=== PATIENT | male | born 1970 | race Caucasian/White ===

== ENCOUNTER 2018-09-06 12:20 | Observation (INO) | payer OTHER ==
[~2018-09-06] VITALS: Ht 177.8 cm; Wt 112.5 kg
--- OUTSIDE RECORDS SUMMARY | 2018-09-06 12:22 | XMS REPORT | Clinical Summary ---
Author Author [facility] Address Unknown Phone Unavailable Care Team Providers Care System Administration Manager Name Role Phone Jose Wilson MD PCP Allergies Comments Active Allergy Reactions Severity Noted Date No Known Drug Allergies 11/02/2015 Medications End Date Status Medication Sig Dispensed Refills Start Date Active aspirin (ECOTRIN) 81 MG Take 81 mg by 0 enteric coated tablet mouth daily. 10/02/2018 Active atenolol-chlorthalidone Take 1 tablet 30 tablet 5 (TENORETIC 50) 50-25 mg by mouth 8 per tablet daily. Active simvastatin (ZOCOR) 40 MG TAKE 1 TABLET 30 tablet 4 tablet BY MOUTH 8 EVERY DAY Active alfuzosin (UROXATRAL) 10 Take 10 mg by 2 mg 24 hr tablet mouth daily. 9 Active pantoprazole (PROTONIX) Take 1 tablet 90 tablet 0 40 MG EC tablet (40 mg total) 9 by mouth daily. 09/25/2017 Discontinued metoprolol tartrate Take 1 tablet 60 tablet 5 (LOPRESSOR) 50 mg tablet (50 mg total) 7 by mouth 2 (two) times a day. 01/09/2018 Discontinued simvastatin (ZOCOR) 40 MG TAKE 1 30 tablet 5 tablet TABLET(S) 7 EVERY DAY BY ORAL ROUTE. 09/25/2017 Discontinued tamsulosin (FLOMAX) 0.4 TAKE 1 30 capsule 5 mg capsule,extended CAPSULE BY 7 release 24hr MOUTH EVERY DAY 09/25/2017 Discontinued atenolol-chlorthalidone Take 1 tablet 30 tablet 11 (TENORETIC 50) 50-25 mg by mouth 8 per tablet daily. 10/02/2017 Discontinued atenolol-chlorthalidone Take 1 tablet 30 tablet 5 (TENORETIC 50) 50-25 mg by mouth 8 per tablet daily. 11/14/2017 benzonatate (TESSALON Take 1 10 capsule 0 PERLES) 100 MG capsule capsule (100 8 mg total) by mouth 3 (three) times a day as needed for cough for up to 30 days. 08/27/2018 Discontinued fluticasone (FLONASE) 50 2 sprays (100 15.8 mL 0 mcg/actuation nasal spray mcg total) by 8 Each Nare route daily. Status Hospital, Clinic, or Ordered Dose Route Frequency Start End Date Other Facility Date Administered Medication Ended methylPREDNISolone 40 mg IM once 10/16/19 acetate (DEPO-MEDROL) 18 8 injection 40 mgIndications: Seasonal allergic rhinitis due to pollen, unspecified chronicity Active Problems Problem Noted Date Gastroesophageal reflux disease without esophagitis 08/27/2018 Overview: check cbc, h pylori, start tx to gi for egd and colonoscopy Colon cancer screening 08/27/2018 Essential hypertension, benign 08/27/2018 Immunization refused 08/27/2018 Immunization counseling 08/27/2018 BMI 36.0-36.9,adult 09/25/2017 OAB (overactive bladder) 09/25/2017 Benign essential HTN 11/02/2015 Fatigue 11/02/2015 HLD (hyperlipidemia) 11/02/2015 Impotence 11/02/2015 Lateral epicondylitis 11/02/2015 Encounters Care Team Description Date Type Specialty Fariba Browne NP Gastroesophageal reflux disease without esophagitis (Primary Dx); Colon cancer screening; Mixed hyperlipidemia; Essential hypertension, benign; BMI 36.0-36.9,adult; Immunization refused; Immunization counseling 08/27/2018 Office Visit Jose Soler MD 06/04/2018 Refill Jose Soler MD 01/09/2018 Refill Family Medicine Fariba Browne NP Myalgia (Primary Dx); Seasonal allergic rhinitis due to pollen, unspecified chronicity 10/15/2017 Office Visit Jose Soler MD Benign essential HTN (Primary Dx) 10/02/2017 Office Visit Jose Soler MD Benign essential HTN (Primary Dx); Pure hypercholesterolemia; OAB (overactive bladder); BMI 36.0-36.9,adult 09/25/2017 Office Visit Family Medicine after 09/05/2017 Social History Date Tobacco Use Types Packs/Day Years Used Never Smoker Smokeless Tobacco: Never Used Alcohol Use Drinks/Week oz/Week Comments Yes Sex Assigned at Date Recorded Not on file Industry Job Start Date Occupation Not on file Not on file Not on file Travel End Travel History Travel Start No recent travel history available. Last Filed Vital Signs Time Taken Vital Sign Reading 08/27/2018 1:06 PM [employer] Blood Pressure 109/70 08/27/2018 1:06 PM [employer] Pulse 62 08/27/2018 1:06 PM [employer]EE [employer] Temperature 36.7 C (98 F) 10/15/2017 3:58 PM CDT Respiratory Rate 16 08/27/2018 1:06 PM [employer]OYEE [employer]IST Oxygen Saturation 97% - Inhaled Oxygen - Concentration 08/27/2018 1:06 PM [employer]EE [employer] Weight 115 kg (254 lb 3.2 oz) 08/27/2018 1:06 PM [employer]OYEE [employer] Height 177.8 cm (5' 10") 08/27/2018 1:06 PM [employer]OYEE [employer] Body Mass Index 36.47 Plan of Treatment Care Team Description Date Type Specialty Jose Wilson MD [address] [place] [address] 02/25/2019 Office Visit Family Medicine Health Maintenance Due Date Last Done Comments INFLUENZA VACCINE 02/24/2018 COLON CANCER SCREENING 2018 SHINGLES VACCINES ( of 2018 2) Procedures Comments Procedure Name Priority Date/Time Associated Diagnosis URINALYSIS, AUTOMATED Routine 08/27/2018 WITH MICROSCOPY 1:39 PM [employer] HEMOGLOBIN A1C Routine 08/27/2018 BMI 36.0-36.9,adult 1:39 PM [employer] HEPATIC FUNCTION PANEL Routine 08/27/2018 Mixed hyperlipidemia 1:39 PM [employer]EE [employer]IST LIPID PANEL Routine 08/27/2018 Mixed hyperlipidemia 1:39 PM [employer]OYEE [employer]IST CBC WITH PLATELET AND Routine 08/27/2018 Gastroesophageal reflux DIFFERENTIAL 1:34 PM [employer]OYEE [employer]IST disease without esophagitis BASIC METABOLIC PANEL Routine 08/27/2018 Gastroesophageal reflux 1:34 PM [employer] disease without esophagitis HELICOBACTER PYLORI Routine 08/27/2018 Gastroesophageal reflux BREATH TEST 1:34 PM [employer]OYEE [employer]IST disease without esophagitis POCT INFLUENZA A/B Routine 10/15/2017 Myalgia 4:43 PM CDT LIPID PANEL Routine 10/02/2017 Pure hypercholesterolemia 1:47 PM [employer]OYEE [employer]IST BASIC METABOLIC PANEL Routine 10/02/2017 Benign essential HTN 1:47 PM [employer]OYEE [employer]IST after 09/05/2017 Results * Urinalysis, automated with microscopy (08/27/2018 1:39 PM EMPLOYEE PLACEMENT SPECIALIST) Color, UA YELLOW YELLOW [facility] [place] Appearance CLEAR CLEAR [facility] [place] Specific gravity, urine 1.020 1.001 - 1.035 [facility] [place] pH, urine 6.0 5.0 - 8.0 [facility] [place] Glucose, urine NEGATIVE NEGATIVE [facility] [place] Bilirubin, UA NEGATIVE NEGATIVE [facility] [place] Ketones, UA NEGATIVE NEGATIVE [facility] [place] Occult blood, urine NEGATIVE NEGATIVE [facility] [place] Protein, UA NEGATIVE NEGATIVE [facility] [place] Nitrite, UA NEGATIVE NEGATIVE [facility] [place] Leukocyte esterase, UA NEGATIVE NEGATIVE [facility] [place] WBC, UA NONE SEEN < OR=5 /HPF [facility] [place] RBC, UA NONE SEEN < OR=2 /HPF [facility] [place] Squamous epithelial NONE SEEN < OR=5 /HPF [facility] cells, UA [place] Bacteria, UA NONE SEEN NONE SEEN /HPF [facility] [place] Hyaline casts, UA NONE SEEN NONE SEEN /LPF [facility] [place] Resulting Agency Comment Performing Organization Information: Site ID: [id number]: [facility] Address: [address] [place] [phone] Director: Zaira Hood Performing Organization Address City/State/Zipcode Phone Number [facility] [facility] [address] [address] * Hemoglobin A1c (08/27/2018 1:39 PM EMPLOYEE PLACEMENT SPECIALIST) Hemoglobin A1C 5.5 <5.7 % of total Hgb [facility] Comment: [place] For the purpose of screening for the presence of diabetes: <5.7% Consistent with the absence of diabetes 5.7-6.4%Consistent with increased risk for diabetes (predi abetes) > or=6.5%Consistent with diabetes This assay result is consistent with a decreased risk of diabetes. Currently, no consensus exists regarding use of hemoglobin A1c for diagnosis of diabetes in children. According to [place] Diabetes Association (ADA) guidelines, hemoglobin A1c <7.0% represents optimal control in non- diabetic patients. Different metrics may apply to specific patient populations. Standards of Medical Care in Diabetes(ADA). Specimen Blood Resulting Agency Comment Performing Organization Information: Site ID: [facility] Name: [facility] Address: [address] [place] [phone] Director: Zaira Hood Performing Organization Address City/[facility] [place] [place] [address] * Hepatic function panel (08/27/2018 1:39 PM EMPLOYEE PLACEMENT SPECIALIST) Protein 6.7 6.1 - 8.1 g/dL [facility] Albumin, S 4.6 3.6 - 5.1 g/dL [facility] Globulin, total 2.1 1.9 - 3.7 g/dL (calc) [facility] Albumin/globulin ratio 2.2 1.0 - 2.5 (calc) [facility] Total bilirubin 0.4 0.2 - 1.2 mg/dL [facility] Bilirubin direct 0.1 < OR=0.2 mg/dL [facility] Bilirubin, indirect 0.3 0.2 - 1.2 mg/dL (calc) [facility] Alkaline phosphatase 38 (L) 40 - 115 U/L [facility] AST 26 10 - 35 U/L [facility] ALT 32 9 - 46 U/L [facility] Specimen Blood Resulting Agency Comment Performing Organization Information: Site ID: [facility] Name: [facility] Address: [address] [place] [id number] Director: Zaira Hood Performing Organization Address [facility] Phone Number [address] [address] * Lipid panel (08/27/2018 1:39 PM EMPLOYEE PLACEMENT SPECIALIST) Only the most recent of 2 results within the time period is included. Cholesterol, total 171 <200 mg/dL [facility] HDL cholesterol 31 (L) >40 mg/dL [facility] Triglycerides 537 (H) <150 mg/dL [facility] LDL cholesterol Comment: mg/dL (calc) [facility] calculated LDL cholesterol not [place] calculated. Triglyceride levels greater than 400 mg/dL invalidate calculated LDL results. Reference range: <100 Desirable range <100 mg/dL for primary prevention; <70 mg/dL for patients with CHD or diabetic patients with > or=2 CHD risk factors. LDL-C is now calculated using the Shaun calculation, which is a validated novel method providing better accuracy than the Friedewald equation in the estimation of LDL-C. Davian BLOOM et al. RAFIQ. 2013;310(88): 3539-1573 (http://education.[employer]/faq/NOD723) Cholesterol/HDL ratio 5.5 (H) <5.0 (calc) [facility] Non-HDL cholesterol 140 (H) <130 mg/dL (calc) [facility] Comment: [place] For patients with diabetes plus 1 major ASCVD risk factor, treating to a non-HDL-C goal of <100 mg/dL (LDL-C of <70 mg/dL) is considered a therapeutic option. Specimen Blood Resulting Agency Comment Performing Organization Information: Site ID: [id number] Name: [facility] Address: [address] [place] [phone] Director: Zaira Hood Performing Organization Address City/[facility] Phone Number [address] [address] * Helicobacter pylori breath test (08/27/2018 1:34 PM EMPLOYEE PLACEMENT SPECIALIST) H. pylori breath test NOT DETECTED NOT DETECTED [facility] Comment: [place] Antimicrobials, proton pump inhibitors, and bismuth preparations are known to suppress H. pylori, and ingestion of these prior to H. pylori diagnostic testing may lead to false negative results. If clinically indicated, the test may be repeated on a new specimen obtained two weeks after discontinuing treatment. However, a positive result is still clinically valid. Resulting Agency Comment Performing Organization Information: Site ID: [id number] Name: [facility] Address: [address] [place] [phone] Director: Zaira Hood Performing Organization Address City/[facility]/Zipcode Phone [place] [employer] [place] [address] * CBC with platelet and differential (08/27/2018 1:34 PM EMPLOYEE PLACEMENT SPECIALIST) WBC 8.2 3.8 - 10.8 Thousand/uL [facility] RBC 4.96 4.20 - 5.80 Million/uL [facility] HGB 15.8 13.2 - 17.1 g/dL [facility] HCT 44.5 38.5 - 50.0 % [facility] MCV 89.7 80.0 - 100.0 fL [facility] MCH 31.9 27.0 - 33.0 pg [facility] MCHC 35.5 32.0 - 36.0 g/dL [facility] RDW 13.1 11.0 - 15.0 % [facility] Platelet count 200 140 - 400 Thousand/uL [facility] MPV 12.3 7.5 - 12.5 fL [facility] Neutrophils, absolute 4,010 1,500 - 7,800 cells/uL [facility] Lymphocytes, absolute 3,231 850 - 3,900 cells/uL [facility] Monocytes, absolute 689 200 - 950 cells/uL [facility] Eosinophils, absolute 230 15 - 500 cells/uL [facility] Basophils, absolute 41 0 - 200 cells/uL [facility] [place] Neutrophils 48.9 % [facility] [place] Lymphocytes 39.4 % [facility] [place] Monocytes 8.4 % [facility] [place] Eosinophils 2.8 % [facility] [place] Basophils + RC 0.5 % [facility] [place] Specimen Blood Resulting Agency Comment Performing Organization Information: Site ID: [id number] Name: [facility] Address: [address] [place] [phone] Director: Zaira Hood Performing Organization Address City/State/Zipcode Phone Number [employer] [address] [address] * Basic metabolic panel (08/27/2018 1:34 PM EMPLOYEE PLACEMENT SPECIALIST) Only the most recent of 2 results within the time period is included. Glucose 99 65 - 99 mg/dL [facility] Comment: [place] Fasting reference interval BUN, whole blood 18 7 - 25 mg/dL [facility] Creatinine 0.93 0.70 - 1.33 mg/dL [facility] Comment: [place] For patients >49 years of age, the reference limit for Creatinine is approximately 13% higher for people identified as -Cymraes. EGFR Non-Afr. [place] 95 > OR=60 mL/min/1.73m2 [facility] [place] EGFR 111 > OR=60 mL/min/1.73m2 [facility] [place] BUN/creatinine ratio NOT APPLICABLE 6 - 22 (calc) [facility] Sodium 141 135 - 146 mmol/L [facility] Potassium 4.1 3.5 - 5.3 mmol/L [facility] Chloride 100 98 - 110 mmol/L [facility] CO2 25 20 - 32 mmol/L [facility] [place] Calcium 9.2 8.6 - 10.3 mg/dL [facility] [place] Specimen Blood Resulting Agency Comment Performing Organization Information: Site ID: [id number]: [facility] Address: [address] [place] [phone] Director: Zaira Hood Performing Organization Address City/State/Zipcode Phone Number [facility] [place] [address] [place] [address] * POC Influenza A/B (10/15/2017 4:43 PM CDT) Rapid Influenza A Ag negative Rapid Influenza B Ag negative Specimen Nasopharyngeal after 09/05/2017 Insurance Payer Benefit Subscriber ID Type Phone Address Plan / Group CIG[employer] CIGNA OPEN xxxxxxxxxxx HMO ACCESS/NET WORK Advance Directives Patient has advance care planning documents on file. For more information, genet anderson contact: Edward Brennan [address] [place] [address]
[2018-09-06 12:51] LABS: BASOPHILS % 0.4 % (0.0-1.0); EOSINOPHILS # (AUTO) 0.2 (0.0-0.4); EOSINOPHILS % 2.6 % (0.0-6.0); HEMATOCRIT 43.7 % (38.2-49.6); HEMOGLOBIN 15.2 g/dL (14.0-18.0); LYMPHOCYTES # (AUTO) 2.5 (1.0-3.2); LYMPHOCYTES % 30.3 % (18.0-39.1); MEAN CORPUSCULAR HEMOGLOBIN 30.8 pg (28-32); MEAN CORPUSCULAR HGB CONC 34.8 g/dL (31-35); MEAN CORPUSCULAR VOLUME 88.5 fL (81-99); MONOCYTES # (AUTO) 0.7 (0.2-0.8); MONOCYTES % 8.2 % (4.4-11.3); NEUTROPHILS # (AUTO) 4.7 (2.1-6.9); NEUTROPHILS % 58.3 % (38.7-80.0); PLATELET COUNT 196 x10e3/uL (140-360); RED BLOOD COUNT 4.94 x10e6/uL (4.3-5.7); RED CELL DISTRIBUTION WIDTH 13.2 % (11.7-14.4)
[2018-09-06 12:56] LABS: INR 0.86; PARTIAL THROMBOPLASTIN TIME 29.7 seconds (23.8-35.5); PROTHROMBIN TIME 12.5 seconds (11.9-14.5)
[2018-09-06] MEDS ORDERED: NITROGLYCERIN 2% OINT 1 GM PKT ONE (12:59)
[2018-09-06] MEDS ORDERED: NITROGLYCERIN 2% OINT 1 GM PKT TOP ONE (13:00)
[2018-09-06 13:06] LABS: ALANINE AMINOTRANSFERASE 35 IU/L (0-55); ALBUMIN 4.4 g/dL (3.5-5.0); ALBUMIN/GLOBULIN RATIO 1.6 (0.8-2.0); ALKALINE PHOSPHATASE 42 IU/L (40-150); ANION GAP 15.5 mmol/L (8-16); BLOOD UREA NITROGEN 20 mg/dL (7-26); BUN/CREATININE RATIO 18 (6-25); CALCIUM 9.5 mg/dL (8.4-10.2); CARBON DIOXIDE 28 mmol/L (22-29); CHLORIDE 101 mmol/L (98-107); CREATINE KINASE 329 IU/L (30-200); EST GLOMERULAR FILTRATION RATE > 60 ML/MIN (60-); GLUCOSE 97 mg/dL (74-118); POTASSIUM 3.5 mmol/L (3.5-5.1); SODIUM 141 mmol/L (136-145)
--- NOTE | 2018-09-06 13:32 | Diagnostic Imaging Report ---
EXAMINATION: CHEST SINGLE (PORTABLE) INDICATION: Chest pain. COMPARISON: None FINDINGS: TUBES and LINES: None. LUNGS: Low lung volumes. Mild patchy bibasilar opacities, likely atelectasis. There is no evidence of pneumonia or pulmonary edema. PLEURA: No pleural effusion or pneumothorax. HEART AND MEDIASTINUM: Apparent borderline mild enlargement of the cardiomediastinal silhouette likely reflects portable technique. BONES AND SOFT TISSUES: No acute osseous lesion. Soft tissues are unremarkable. UPPER ABDOMEN: No free air under the diaphragm. IMPRESSION: No acute radiographic abnormality. Signed by: Dr. Arpita Leon MD on 09/06/2018 1:28 PM
[2018-09-06 14:16] LABS: BILIRUBIN,URINE NEGATIVE (NEGATIVE); CLARITY,URINE CLEAR (CLEAR); COLOR,URINE YELLOW (YELLOW); KETONES,URINE NEGATIVE (NEGATIVE); LEUKOCYTE ESTERASE ,URINE TRACE (NEGATIVE); NITRITE,URINE NEGATIVE (NEGATIVE); PROTEIN,URINE DIPSTICK NEGATIVE (NEGATIVE); URINE UROBILINOGEN 0.2 mg/dL (0.2 - 1)
[2018-09-06 14:24] LABS: WBC,URINE (MAN) 0-5 /HPF (0-5)
[2018-09-06] MEDS ORDERED: ASPIRIN 81 MG CHEW TAB PO ONE ×2 (14:45→17:45)
[2018-09-06] MEDS ORDERED: NITROGLYCERIN 0.4 MG SUBL SL PRN (14:45)
[2018-09-06] MEDS ORDERED: MORPHINE SULFATE 2 MG/ML SYR 1ML IV PRN (14:45)
[2018-09-06] MEDS ORDERED: ONDANSETRON HCL INJ 2MG/ML 2ML 2 MG/ML VIAL IV PRN (14:45)
[2018-09-06] MEDS ORDERED: MORPHINE SULFATE INJ 4 MG/ML INJ 1ML IV PRN (15:00)
--- OUTSIDE RECORDS SUMMARY | 2018-09-06 15:02 | XMS REPORT ---
Author Author [facility] Address Unknown Phone Unavailable Care Team Providers Care Housing Relocation Name Role Phone Lisbeth MULLER Unavailable Unavailable Problems This patient has no known problems. Allergies, Adverse Reactions, Alerts This patient has no known allergies or adverse reactions. Medications This patient has no known medications. Results Test Description Test Time Test Comments Text Results Atomic Results Result Comments CHEST SINGLE (PORTABLE) 2018-09-06 13:26:00 [place] [address] Patient Name: LEONARD HALL MR #: [id number] : 1970 Age/Sex: 48/M Req #: [id number] Adm Physician: Ordered by: TIM MULLER MD Report #: [id number] Location: ER Room/Bed: Procedure: [id number] DX/CHEST SINGLE (PORTABLE) Exam Date: 09/06/18 Exam Time: 1235 REPORT STATUS: Signed EXAMINATION: CHEST SINGLE (PORTABLE) INDICATION: Chest pain. COMPARISON: None FINDINGS: TUBES and LINES: None. LUNGS: Low lung volumes. Mild patchy bibasilar opacities, likely atelectasis. There is no evidence of pneumonia or pulmonary edema. PLEURA: No pleural effusion or pneumothorax. HEART AND MEDIASTINUM: Apparent borderline mild enlargement of the cardiomediastinal silhouette likely reflects portable technique. BONES AND SOFT TISSUES: No acute osseous lesion. Soft tissues are unremarkable. UPPER ABDOMEN: No free air under the diaphragm. IMPRESSION: No acute radiographic abnormality. Signed by: Dr. Gladis Atkinson MD on 09/06/2018 1:28 PM Dictated By: GLADIS ATKINSON MD [id number] Transcribed By: SLICK on 09/06/18 1328 COPY TO: TIM MULLER MD
--- OUTSIDE RECORDS SUMMARY | 2018-09-06 15:02 | XMS REPORT | Clinical Summary ---
Author Author [facility] Organization [facility] Address Unknown Phone Unavailable Care Team Providers Care Precision Dancer Name Role Phone Jose Wilson MD PCP [...] Taken Vital Sign Reading 08/27/2018 1:06 PM BUSINESS INITIATIVES MANAGER Blood Pressure 109/70 08/27/2018 1:06 PM BUSINESS INITIATIVES MANAGER Pulse 62 08/27/2018 1:06 PM BUSINESS INITIATIVES MANAGER Temperature 36.7 C (98 F) 10/15/2017 3:58 PM CDT Respiratory Rate 16 08/27/2018 1:06 PM BUSINESS INITIATIVES MANAGER Oxygen Saturation 97% - Inhaled Oxygen - Concentration 08/27/2018 1:06 PM BUSINESS INITIATIVES MANAGER Weight 115 kg (254 lb 3.2 oz) 08/27/2018 1:06 PM BUSINESS INITIATIVES MANAGER Height 177.8 cm (5' 10") 08/27/2018 1:06 PM BUSINESS INITIATIVES MANAGER Body Mass Index 36.47 Plan of Treatment Care Team Description Date Type Specialty Jose Wilson MD [address] [place] [address] 02/25/2019 Office Visit Family Medicine Health Maintenance Due Date Last Done Comments INFLUENZA VACCINE 02/24/2018 COLON CANCER SCREENING 2018 SHINGLES VACCINES ( of 2018 2) Procedures Comments Procedure Name Priority Date/Time Associated Diagnosis URINALYSIS, AUTOMATED Routine 08/27/2018 WITH MICROSCOPY 1:39 PM BUSINESS INITIATIVES MANAGER HEMOGLOBIN A1C Routine 08/27/2018 BMI 36.0-36.9,adult 1:39 PM BUSINESS INITIATIVES MANAGER HEPATIC FUNCTION PANEL Routine 08/27/2018 Mixed hyperlipidemia 1:39 PM BUSINESS INITIATIVES MANAGER LIPID PANEL Routine 08/27/2018 Mixed hyperlipidemia 1:39 PM BUSINESS INITIATIVES MANAGER CBC WITH PLATELET AND Routine 08/27/2018 Gastroesophageal reflux DIFFERENTIAL 1:34 PM BUSINESS INITIATIVES MANAGER disease without esophagitis BASIC METABOLIC PANEL Routine 08/27/2018 Gastroesophageal reflux 1:34 PM BUSINESS INITIATIVES MANAGER disease without esophagitis HELICOBACTER PYLORI Routine 08/27/2018 Gastroesophageal reflux BREATH TEST 1:34 PM BUSINESS INITIATIVES MANAGER disease without esophagitis POCT INFLUENZA A/B Routine 10/15/2017 Myalgia 4:43 PM CDT LIPID PANEL Routine 10/02/2017 Pure hypercholesterolemia 1:47 PM BUSINESS INITIATIVES MANAGER BASIC METABOLIC PANEL Routine 10/02/2017 Benign essential HTN 1:47 PM BUSINESS INITIATIVES MANAGER after 09/05/2017 Results * Urinalysis, automated with microscopy (08/27/2018 1:39 PM BUSINESS INITIATIVES MANAGER) Color, UA YELLOW YELLOW [facility] [place] Appearance CLEAR CLEAR X5 Group [place] Specific gravity, urine 1.020 1.001 - 1.035 [facility] [place] pH, urine 6.0 5.0 - 8.0 [facility] [place] Glucose, urine NEGATIVE NEGATIVE [facility] [place] Bilirubin, UA NEGATIVE NEGATIVE [facility] [place] Ketones, UA NEGATIVE NEGATIVE [facility] [place] Occult blood, urine NEGATIVE NEGATIVE [facility] [place] Protein, UA NEGATIVE NEGATIVE [facility] [place] Nitrite, UA NEGATIVE NEGATIVE [facility] [place] Leukocyte esterase, UA NEGATIVE NEGATIVE [facility] [place] WBC, UA NONE SEEN < OR=5 /HPF [facility] [place] RBC, UA NONE SEEN < OR=2 /HPF [facility] [place] Squamous epithelial NONE SEEN < OR=5 /HPF [facility] cells, UA [place] Bacteria, UA NONE SEEN NONE SEEN /HPF [facility] [place] Hyaline casts, UA NONE SEEN NONE SEEN /LPF [facility] [place] Resulting Agency Comment Performing Organization Information: Site ID: [id number] Name: [facility] Address: [address] [place] [phone] Director: Zaira Hood Performing Organization Address City/State/Zipcode Phone Number [facility] [address] [address] * Hemoglobin A1c (08/27/2018 1:39 PM BUSINESS INITIATIVES MANAGER) Hemoglobin A1C 5.5 <5.7 % of total Hgb [facility] Group Comment: [place] For the purpose of screening for the presence of diabetes: <5.7% Consistent with the absence of diabetes 5.7-6.4%Consistent with increased risk for diabetes (predi abetes) > or=6.5%Consistent with diabetes This assay result is consistent with a decreased risk of diabetes. Currently, no consensus exists regarding use of hemoglobin A1c for diagnosis of diabetes in children. According to [place] Diabetes Association (ADA) guidelines, hemoglobin A1c <7.0% represents optimal control in non- diabetic patients. Different metrics may apply to specific patient populations. Standards of Medical Care in Diabetes(ADA). Specimen Blood Resulting Agency Comment Performing Organization Information: Site ID: [facility] Name: [facility] Address: [address] [place] [phone] Director: Zaira Hood Performing Organization Address City/[facility] [place] [address] * Hepatic function panel (08/27/2018 1:39 PM BUSINESS INITIATIVES MANAGER) Protein 6.7 6.1 - 8.1 g/dL [facility] Albumin, S 4.6 3.6 - 5.1 g/dL [facility] Globulin, total 2.1 1.9 - 3.7 g/dL (calc) [facility] Albumin/globulin ratio 2.2 1.0 - 2.5 (calc) [facility] Total bilirubin 0.4 0.2 - 1.2 mg/dL [facility] Bilirubin direct 0.1 < OR=0.2 mg/dL [facility] Bilirubin, indirect 0.3 0.2 - 1.2 mg/dL (calc) [facility] Alkaline phosphatase 38 (L) 40 - 115 U/L [facility] AST 26 10 - 35 U/L [facility] ALT 32 9 - 46 U/L [facility] Specimen Blood Resulting Agency Comment Performing Organization Information: Site ID: [facility] Name: [facility] Address: [address] [place] [phone] Director: Zaira Hood Performing Organization Address [facility] Phone Number [address] [address] * Lipid panel (08/27/2018 1:39 PM BUSINESS INITIATIVES MANAGER) Only the most recent of 2 results within the time period is included. Cholesterol, total 171 <200 mg/dL [facility] HDL cholesterol 31 (L) >40 mg/dL [facility] Triglycerides 537 (H) <150 mg/dL [facility] LDL cholesterol Comment: mg/dL (calc) [facility] calculated LDL cholesterol not [place] calculated. Triglyceride levels greater than 400 mg/dL [...] of LDL-C. Davian BLOOM et al. RAFIQ. 2013;310(26): 1174-8220 (http://education.SafeTool/faq/NQO843) Cholesterol/HDL ratio 5.5 (H) <5.0 (calc) [facility] Non-HDL cholesterol 140 (H) <130 mg/dL (calc) [facility] Comment: [place] For patients with diabetes plus 1 major ASCVD risk factor, treating to a non-HDL-C goal of <100 mg/dL (LDL-C of <70 mg/dL) is considered a therapeutic option. Specimen Blood Resulting Agency Comment Performing Organization Information: Site ID: [id number] Name: [facility] Address: [address] [place] [phone] Director: Zaira Hood Performing Organization Address City/[facility] Phone Number [address] [address] * Helicobacter pylori breath test (08/27/2018 1:34 PM BUSINESS INITIATIVES MANAGER) H. pylori breath test NOT DETECTED NOT DETECTED [facility] Group Comment: [place] Antimicrobials, proton pump inhibitors, and bismuth preparations [...] Performing Organization Information: Site ID: [id number] Name: [facility] Address: [address] [place] [phone] Director: Zaira Hood Performing Organization Address City/[facility]/Zipcode [place] [address] * CBC with platelet and differential (08/27/2018 1:34 PM BUSINESS INITIATIVES MANAGER) WBC 8.2 3.8 - 10.8 Thousand/uL [facility] [place] RBC 4.96 4.20 - 5.80 Million/uL [facility] [place] HGB 15.8 13.2 - 17.1 g/dL [facility] [place] HCT 44.5 38.5 - 50.0 % [facility] Group [place] MCV 89.7 80.0 - 100.0 fL X5 Group [place] MCH 31.9 27.0 - 33.0 pg X5 Group [place] MCHC 35.5 32.0 - 36.0 g/dL [facility] [place] RDW 13.1 11.0 - 15.0 % [facility] [place] Platelet count 200 140 - 400 Thousand/uL [facility] Group [place] MPV 12.3 7.5 - 12.5 fL [facility] [place] Neutrophils, absolute 4,010 1,500 - 7,800 cells/uL [facility] [place] Lymphocytes, absolute 3,231 850 - 3,900 cells/uL [facility] [place] Monocytes, absolute 689 200 - 950 cells/uL [facility] [place] Eosinophils, absolute 230 15 - 500 cells/uL [facility] [place] Basophils, absolute 41 0 - 200 cells/uL [facility] [place] Neutrophils 48.9 % [facility] [place] Lymphocytes 39.4 % [facility] [place] Monocytes 8.4 % [facility] [place] Eosinophils 2.8 % [facility] [place] Basophils + RC 0.5 % [facility] [place] Specimen Blood Resulting Agency Comment Performing Organization Information: Site ID: [id number] Name: [facility] Address: [address] [place] [phone] Director: Zaira Hood Performing Organization Address City/State/Zipcode Phone Number [facility] [address] [address] * Basic metabolic panel (08/27/2018 1:34 PM BUSINESS INITIATIVES MANAGER) Only the most recent of 2 results within the time period is included. Glucose 99 65 - 99 mg/dL [facility] Group Comment: [place] Fasting reference interval BUN, whole blood 18 7 - 25 mg/dL [facility] [place] Creatinine 0.93 0.70 - 1.33 mg/dL [facility] Comment: [place] For patients >49 years of age, the reference limit for Creatinine is approximately 13% higher for people identified as -[place]. EGFR Non-Afr. [place] 95 > OR=60 mL/min/1.73m2 X5 Group [place] EGFR 111 > OR=60 mL/min/1.73m2 [facility] Group [place] BUN/creatinine ratio NOT APPLICABLE 6 - 22 (calc) [facility] [place] Sodium 141 135 - 146 mmol/L [facility] [place] Potassium 4.1 3.5 - 5.3 mmol/L [facility] [place] Chloride 100 98 - 110 mmol/L [facility] CO2 25 20 - 32 mmol/L [facility] [place] Calcium 9.2 8.6 - 10.3 mg/dL [facility] [place] Specimen Blood Resulting Agency Comment Performing Organization Information: Site ID: [id number] Name: [facility] Address: [address] [place] [phone] Director: Zaira Hood Performing Organization Address City/State/Zipcode Phone Number [facility] [place] [address] [place] [address] * POC Influenza A/B (10/15/2017 4:43 PM CDT) Rapid Influenza A Ag negative Rapid Influenza B Ag negative Specimen Nasopharyngeal after 09/05/2017 Insurance Payer Benefit Subscriber ID Type Phone Address Plan / Group CIGNA CIGNA OPEN xxxxxxxxxxx HMO ACCESS/NET WORK Advance Directives Patient has advance care planning documents on file. For more information, genet anderson contact: Edward Brennan [address] [place] [address]
[2018-09-06] MEDS: SODIUM CHLORIDE 0.9% 1000ML 1,000 ML IV SCH (15:03)
[2018-09-06] MEDS: FAMOTIDINE 20 MG TAB PO SCH ×2 (15:03→21:47)
[2018-09-06] MEDS ORDERED: ATENOLOL-CHLOR1 EAC1 PO (15:35)
[2018-09-06] MEDS ORDERED: PANTOPRAZOLE SO40 MG PO (15:35)
[2018-09-06] MEDS ORDERED: ALFUZOSIN HCL10 MG PO (15:35)
[2018-09-06] MEDS ORDERED: SIMVASTATIN40 MG PO (15:35)
[2018-09-06] MEDS ORDERED: TESTOSTERO200 MG/1 M (15:35)
--- NOTE | 2018-09-06 16:24 | NUR ---
HIGHWAY PATROL PILOT AT BEDSIDE
--- NOTE | 2018-09-06 16:54 | NUR ---
BUBBLE STUDY COMPLETED AT BEDSIDE
--- NOTE | 2018-09-06 17:25 | NUR ---
DR. GLOVER AT BEDSIDE EVALUATING PATIENT. WANTS 2ND CARDIAC ENZYME DRAWN NOW
[2018-09-06] MEDS ORDERED: CLOPIDOGREL BISULFATE 75 MG TAB PO NR (17:45)
[2018-09-06 18:16] LABS: CREATINE KINASE MB 1.6 ng/mL (0-5.0)
--- NOTE | 2018-09-06 18:49 | NUR ---
DR. JOSEPH CALLED WITH 2ND SET OF CARDIAC ENZYMES. NO OTHER ORDERS RECEIVED. HE WANTS PATIENT NPO AFTER MIDNIGHT FOR CARDIAC CATH TOMORROW
--- NOTE | 2018-09-06 19:20 | NUR ---
RECEIVED REPORT FROM WAYLON KOVACS DAY SHIFT NURSE.
--- NOTE | 2018-09-06 19:20 | NUR ---
REPORT TO ERIKA Horvath
[2018-09-06] MEDS: NITROGLYCERIN 2% OINT 1 GM PKT TOP SCH (20:27)
--- NOTE | 2018-09-06 21:10 | NUR ---
NITRO PASTE D/C. PT HR DECREASED, BP STABLE (108/71), PT COMPLAINING OF HEADACHE.
[2018-09-06 22:45] VITALS: BP 119/59
--- NOTE | 2018-09-06 22:45 | NUR ---
pt received from er via wheelchair. no ss of distress noted upon admission. pt made comfortable and oriented to rm. tele in place. need stool sample, hat provided. hx obtained. will cont to follow poc. call ortez within reach.
[2018-09-06 23:00] VITALS: BP 119/59
--- NOTE | 2018-09-06 23:28 | NUR ---
obtained consent at time per orders. no distress noted. call ortez within reach.
[2018-09-07] VITALS: BP 119/73
--- NOTE | 2018-09-07 | NUR ---
pt made npo at time per orders. vebalized understanding. call ortez within reach.
[2018-09-07] MEDS: SODIUM CHLORIDE 0.9% 1000ML 1,000 ML IV SCH (01:16)
--- NOTE | 2018-09-07 01:52 | Consultation ---
DATE OF CONSULTATION: September 06, 2018 CARDIAC CONSULTATION REASON FOR THE CONSULTATION: Unstable angina. HISTORY OF PRESENT ILLNESS: This is a 48-year-old gentleman, who is known with hypertension. The patient is relatively active. He is known also to have hypercholesterolemia. For the last 3 or 4 days, he is having repeated episodes of severe chest pain associated with diaphoresis and nausea and feeling unwell. He had several episodes 3 days ago and again today he had several episodes. He checked into the emergency room. "I hate to be in the hospital, but I'm having a problem." He denied having any GI symptoms. He takes Protonix for years and everything is under good control. This pain is totally different from usual heartburn. He does have easy fatigability and some shortness of breath on exertion. There is no orthopnea. No paroxysmal nocturnal dyspnea. He is to a certain extent very active and this problem is of recent onset. REVIEW OF SYSTEMS: Was done to all systems, will be summarized for clarity. GENERAL: No fever. No chills. HEENT: No stuffiness. No recent cold. PULMONARY: No cough. No hemoptysis. No pleuritic chest pain. CARDIAC: As per acute illness. GI: No hematemesis. No melena. : No hematuria. No dysuria. MUSCULOSKELETAL: No aches. No pains. SOCIAL HISTORY: He is . He is nonsmoker, non-alcohol drinker. He is a auto bench mechanic. HOME MEDICATIONS: Include: 1. Atenolol hydrochlorothiazide 50 per 25 one tablet a day. 2. Zocor 40 mg a day. 3. Protonix 40 mg a day. ALLERGIES: NONE. PAST MEDICAL HISTORY: Hypertension. FAMILY HISTORY: Father of pneumonia at age 85. At younger age, he had coronary artery disease and myocardial infarction. Mother of old age. No siblings. Two healthy children 1 son and 1 daughter. PHYSICAL EXAMINATION VITALS: Height of 510. Weight of 250 pounds. Blood pressure is 130/80, equal in both arms. Heart rate of 70. Respiratory rate of 18. HEENT: Pupils are reactive. NECK: No elevation of jugular venous pulsation. No bruit. CHEST: Clear to auscultation and percussion. HEART: PMI to 5th left intercostal space. Normal 1st and 2nd heart sounds. ABDOMEN: Soft with good bowel sounds. No organomegaly. EXTREMITIES: No cyanosis. No clubbing. No edema. NEUROLOGIC: Nonfocal. LAB DATA: First set of cardiac enzyme is normal. BNP of 15. Blood cell count of 8000, hemoglobin 15.2, hematocrit 44%, platelet count of 196,000. Electrolytes are normal. IMPRESSION AND PLAN 1. Unstable coronary syndrome, rule out myocardial infarction. 2. Hypertension. 3. Obesity. PLAN: Serial cardiac enzymes. Loading with Plavix. Options of workup are discussed. The patient and his , they want to proceed directly with invasive approach. "He does not want to be in the hospital and he is having symptoms and it is new and it is very worrisome." Explained if his enzymes are positive then that is the only option. Otherwise, he got 2 options, but he would like to proceed with cardiac catheterization. Procedure risks, benefits, and alternatives are discussed and explained. Questions are answered. Job#: [id number] [place]ANDR[place]
[2018-09-07 04:00] VITALS: BP 112/81
--- NOTE | 2018-09-07 04:23 | NUR ---
pt resting. no ss of distress noted. call ortez within reach.
[2018-09-07 05:35] LABS: BASOPHILS % 0.5 % (0.0-1.0); EOSINOPHILS # (AUTO) 0.2 (0.0-0.4); EOSINOPHILS % 2.5 % (0.0-6.0); HEMATOCRIT 44.1 % (38.2-49.6); HEMOGLOBIN 15.2 g/dL (14.0-18.0); LYMPHOCYTES # (AUTO) 2.7 (1.0-3.2); MEAN CORPUSCULAR HEMOGLOBIN 31.3 pg (28-32); MEAN CORPUSCULAR HGB CONC 34.5 g/dL (31-35); MEAN CORPUSCULAR VOLUME 90.9 fL (81-99); MONOCYTES # (AUTO) 0.7 (0.2-0.8); MONOCYTES % 8.8 % (4.4-11.3); NEUTROPHILS # (AUTO) 4.6 (2.1-6.9); PLATELET COUNT 212 x10e3/uL (140-360); RED BLOOD COUNT 4.85 x10e6/uL (4.3-5.7); RED CELL DISTRIBUTION WIDTH 13.2 % (11.7-14.4)
--- NOTE | 2018-09-07 05:43 | NUR ---
pt showered. tele replaced. no distress noted. call ortez within reach.
[2018-09-07 05:52] LABS: CREATINE KINASE 231 IU/L (30-200)
[2018-09-07] MEDS: NITROGLYCERIN 2% OINT 1 GM PKT TOP SCH ×3 (05:56→12:00)
[2018-09-07 06:17] LABS: ALANINE AMINOTRANSFERASE 32 IU/L (0-55); ALBUMIN 4.2 g/dL (3.5-5.0); ALBUMIN/GLOBULIN RATIO 1.6 (0.8-2.0); ALKALINE PHOSPHATASE 36 IU/L (40-150); ANION GAP 14.6 mmol/L (8-16); BLOOD UREA NITROGEN 18 mg/dL (7-26); BUN/CREATININE RATIO 17 (6-25); CARBON DIOXIDE 27 mmol/L (22-29); CHLORIDE 100 mmol/L (98-107); CREATININE, SERUM 1.04 mg/dL (0.72-1.25); EST GLOMERULAR FILTRATION RATE > 60 ML/MIN (60-); GLUCOSE 107 mg/dL (74-118); POTASSIUM 3.6 mmol/L (3.5-5.1); SODIUM 138 mmol/L (136-145)
[2018-09-07 06:36] LABS: THYROID STIMULATING HORMONE 3.211 uIU/mL (0.350-4.940)
[2018-09-07 07:30] VITALS: BP 110/53
--- NOTE | 2018-09-07 07:30 | NUR ---
PATIENT ASSISTED TO THE RESTROOM AND BACK TO BED. DENIED PAIN AT THIS TIME. BED IN LOWER POSITION, CALL LIGHT AT REACH.
[2018-09-07 08:24] VITALS: BP 110/53
[2018-09-07] MEDS ORDERED: HEPARIN SOD/SOD CHLORIDE 2,000 ML ONE (08:27)
[2018-09-07] MEDS ORDERED: IOPAMIDOL 370 MG/ML 200 ML INFUS..BTL INJ ONE (08:27)
[2018-09-07] MEDS ORDERED: FENTANYL CITRATE/PF 100MCG/2 ML INJ ONE (08:27)
[2018-09-07] MEDS ORDERED: MIDAZOLAM HCL 2 MG/2 ML VIAL ONE (08:27)
[2018-09-07] MEDS ORDERED: LIDOCAINE HCL 2% LOCAL 20 ML VIAL ONE (08:27)
[2018-09-07] MEDS ORDERED: SODIUM CHLORIDE 0.9% 1000ML 1,000 ML ONE (08:27)
--- NOTE | 2018-09-07 08:38 | NUR ---
PATIENT OFF UNIT FOR A PROCEDURE.
[2018-09-07] MEDS: FAMOTIDINE 20 MG TAB PO SCH (09:00)
[2018-09-07] MEDS ORDERED: ASPIRIN 81 MG ENTERIC COATED PO SCH (09:00)
[2018-09-07] MEDS ORDERED: SODIUM CHLORIDE 0.9% 1000ML 1,000 ML IV SCH (09:48)
[2018-09-07] MEDS ORDERED: ACETAMINOPHEN 325 MG TAB PO PRN (10:00)
[2018-09-07] MEDS ORDERED: HYDROCODONE/APAP 5MG-325MG TAB PO PRN (10:00)
[2018-09-07] MEDS ORDERED: ONDANSETRON HCL INJ 2MG/ML 2ML 2 MG/ML VIAL IV PRN (10:00)
--- NOTE | 2018-09-07 10:06 | NUR ---
PATIENT BACK TO UNIT FROM PERSONAL VEHICLE ADVISOR. REPORT RECEIVED FROM PACU NURSE. HAD A LEFT HEART CATH, DRESSING DRY AND INTACT TO RIGHT GROIN, PATIENT DENIED PAIN. ABLE TO WIGGLE TOES, ON BED REST FOR 4 HOURS. BED IN LOWER POSITION, CALL LIGHT AT REACH. FAMILY AT BED SIDE. V/S 96.3-54-18-103/53 AND 95% ON RA.
--- NOTE | 2018-09-07 10:39 | Operative Report ---
DATE OF PROCEDURE: September 07, 2018 PROCEDURES PERFORMED 1. Left heart catheterization. 2. Coronary angiography. 3. Left ventriculography. INDICATIONS FOR PROCEDURE: A 48-year-old male with a history of hypertension, hypercholesterolemia, obesity, who presents to this institution with chest pain symptoms highly concerning for unstable angina pectoris based on description. After a long discussion in terms of management options, we decided to proceed with definitive ischemic evaluation. DESCRIPTION OF PROCEDURE: The risks, benefits, pros, and cons of today's procedure were explained. Patient agreed to proceed. Patient was brought to the cardiac catheterization laboratory where the right groin was prepped and draped in the usual sterile fashion. One percent lidocaine solution was used in the groin region. Access to the right femoral artery was obtained utilizing ultrasound-guided access. A short 4-Zimbabwean femoral sheath was placed. Selective coronary angiography of the [place] left and right coronary artery was performed with a JL4 and 3DRC diagnostic catheters respectively. Angled pigtail catheter was placed in the ventricle and ventriculography was performed utilizing power injection. Hemodynamic assessment of ventricular filling pressures and across the aortic valve were obtained as well. At the conclusion of the case, the femoral sheath was removed and manual compression was applied successfully achieving hemostasis. COMPLICATIONS: None. ESTIMATED BLOOD LOSS: Minimal. FINDINGS 1. Left main is angiographically normal. Gives rise to an LAD and circumflex branch. 2. LAD and its branches are largely angiographically normal. 3. Left circumflex artery is codominant. This vessel and its branches were angiographically normal. 4. RCA is small and a codominant vessel. This vessel and its branches were angiographically normal. 5. Left ventricular ejection fraction is 65% with end-diastolic pressure of 20 mmHg. There is no significant aortic pullback gradient. PLAN/RECOMMENDATIONS 1. Overall, the patient's coronary arteries are largely patent without any significant obstruction. 2. Will need to consider alternative diagnosis as the etiology of his chest pain. 3. Aggressive risk factor modification and medical therapy. 4. Status post cardiac catheterization. Job#: [id number] [place]
--- NOTE | 2018-09-07 11:16 | NUR ---
PATIENT REMAINS ON BED REST. DRESSING DRY AND INTACT TO RIGHT GROIN, NO HEMATOMA NOTED. URINAL PROVIDED. BED IN LOWER POSITION, CALL LIGHT AT REACH.
[2018-09-07 11:42] VITALS: BP 95/54
--- NOTE | 2018-09-07 12:36 | NUR ---
PT IN DEALERSHIP MANAGER WHEN ATTEMPTED TO SEE
--- NOTE | 2018-09-07 13:51 | History and Physical ---
CHIEF COMPLAINT: Chest pain. HPI: This is a 48-year-old morbidly obese with a history of hyperlipidemia, acid reflux, who comes into the ED with complaints of substernal chest pain ongoing for the last 2 days. The patient complained of left-sided chest pain with pressure like sensation with radiation to the left shoulder and arm. He denies any associated nausea or vomiting. The patient due to the onset of chest pain came into the ED for further evaluation. The patient was seen and evaluated at bedside on the medical floor. Doing well with no other complaints. REVIEW OF SYSTEMS: Pertinent positives are substernal chest pain. Pertinent negatives are denies any palpitations, nausea, vomiting, diarrhea, dysuria, hematuria, frequency, urgency, lightheadedness, abdominal pain, headaches, shortness of breath, nausea, or fever. No other complaints. The rest of the 14-point review of systems were reviewed with the patient and are negative. ALLERGIES: NO KNOWN DRUG ALLERGIES. HOME MEDICATIONS 1. . 2. Methadone. 3. p.o. daily. 4. Protonix 40 mg daily. 5. Simvastatin 40 mg daily. 6. replacement. PAST SURGICAL HISTORY: None. PAST MEDICAL HISTORY: Hypertension, diabetes. SOCIAL HISTORY: No drug or alcohol. PHYSICAL EXAMINATION VITAL SIGNS: Temperature 97.1, pulse is 70, respiratory rate 18, blood pressure 110/53, pulse ox 97% on room air. GENERAL: Not in acute distress. Alert and oriented times 3. Cooperative on examination. HEENT: Head is normocephalic and atraumatic. Eyes: Pupils equal, round and reactive to light bilaterally. Extraocular movements intact bilaterally. NECK: Supple. Good range of motion. Throat with no evidence of any erythema or exudates in the posterior pharynx. Has poor dentition. PULMONARY: Clear to auscultation bilaterally. No wheezing. No rales. No rhonchi. No crackles appreciated. CARDIOVASCULAR: Positive S1 and S2. No murmurs, rubs or gallops appreciated. ABDOMEN: Soft, nondistended and nontender to palpation. Bowel sounds present. MUSCULOSKELETAL: Strength is 5/5 throughout. No evidence of any muscle deficit on examination. No weakness appreciated. NEUROLOGICAL: Cranial nerves II-XII are grossly intact. No evidence of any neurological deficits on exam. SKIN: Intact. Warm to touch. Good cap refill. PSYCHIATRIC: Normal affect and mood. EXTREMITIES: No edema. Good range of motion throughout. LAB FINDINGS: Show white count is 8.3, hemoglobin 16, hematocrit is 44, and platelets are 212,000. Coagulation: PT 12, INR 0.83 and PTT 29.7. Chemistry: Sodium 138, potassium 3.6, chloride 109, bicarb 27, anion gap of 14, BUN is 18, creatinine is 1. LFTs were normal. Troponins were negative. LDL 77. TSH is 3.2. Albumin is 4.2. BNP is 15. Urinalysis was negative. MICROBIOLOGY: None. IMAGING STUDIES: Chest x-ray was negative. IMPRESSION 1. Chest pain: Rule out acute coronary syndrome. 2. Morbid obesity. 3. Hypertension. PLAN: Will schedule for left heart cath later today by cardiology. Will continue same plan of care. Continue with cardioprotective meds. Aspirin, statin as well. Continue same home medications. If heart cath is negative, will discharge home. Job#: [id number] [place]
--- NOTE | 2018-09-07 14:05 | NUR ---
Visit made by the Spiritual Care Department Pastoral Visitor, Stefania Nice. PV provided pastoral presence, prayer, hospitality, and supportive listening. Pastoral Visitor informed pt/family of the scope of Nurse Orthopedic Services and availability. KAYLYNN SINGER Telephone Order Clerk Room Service Spiritual Care Department O: [phone] Pager: [phone] ([phone] number calling from)
--- NOTE | 2018-09-07 14:15 | NUR ---
PATIENT OFF BED REST AT THIS TIME. SITTING AT BED SIDE TALKING TO FAMILY MEMBER VISITING. DRESSING DRY AND INTACT TO RIGHT GROIN. CALL LIGHT AT REACH.
--- NOTE | 2018-09-07 16:00 | NUR ---
PATIENT DISCHARGED HOME. DISCHARGE INSTRUCTIONS, PRESCRIPTIONS, AND FOLLOW UP GIVEN TO PATIENT, HE VERBALIZED UNDERSTANDING. IV TO RIGHT AC REMOVED WITH TIP INTACT. ALL PERSONAL ITEMS TAKEN WITH PATIENT. REFUSED WHEEL CHAIR, BUT WAS ACCOMPANY TO THE FRONT LOBBY BY THE HOSPITAL STAFF IN STABLE CONDITION.
--- NOTE | 2018-09-07 17:23 | Discharge Summary ---
FINAL DISCHARGE DIAGNOSES 1. Atypical chest pain, status post left heart catheterization with clean coronaries with no percutaneous coronary intervention indication. 2. Hypertension. 3. Morbid obesity. 4. Acid reflux. 5. Hyperlipidemia. CONSULTANTS: Cardiology. VITAL SIGNS: Temperature is 97.1, pulse 50, respiratory rate 18, blood pressure 110/53, pulse ox 97% on room air. LAB FINDINGS: Show UA was negative. White count 8.3, hemoglobin 15, hematocrit 44, and platelets of 212,000. Coagulation: PT 12, INR 0.86 and PTT 29.7. Chemistry: Sodium 138, potassium 3.6, chloride 100, bicarb 27, anion gap of , BUN 50, and creatinine is 1. Glucose is 107. Calcium 9. LFTs were normal. Troponins are negative. BNP 15. LDL 77. TSH 2.2. MICRO: None. Chest x-ray negative. HOSPITAL COURSE: A 48-year-old male who came into the ED with substernal chest pain. Cardiology was consulted. Started on cardioprotective meds. Patient had a left heart cath performed on September 07, 2018, and found to be negative. No PCI was indicated. Patient was then cleared by cardiology for discharge home. His chest pain was felt to be atypical in nature due to musculoskeletal etiology. On discharge, the patient has been doing well. Back to normal baseline. Denies any chest pain prior to being discharged home. The patient has been cleared by cardiology for discharge home. On the day of discharge, vital signs stable and labs were stable. The patient was evaluated and examined thoroughly on the day of discharge. No other complaints. The patient verbalized understanding and agreed to plan. Follow up as an outpatient with the primary care physician in 1 week and freight representative in 2 week's time. MEDICATIONS: See med reconciliation list. DISPOSITION: Home. CONDITION: Stable. DIET: Heart-healthy. In the event of any worsening symptoms, the patient was advised to come back to the ED for further evaluation. Discharge summary took greater than 35 minutes. LEX HERRERA MD Job#: [id number] DC
[2018-09-07] MEDS ORDERED: SIMVASTATIN 40 MG TAB PO SCH (21:00)
[2018-09-08] MEDS ORDERED: PANTOPRAZOLE SOD 40 MG TABEC PO SCH (07:30)
== END 2018-09-07 15:53 | disposition home or self-care (01) ==
LOC: ER 12:20 → ERHOLD 13:34 → IMCU 22:47
PROVIDERS: ADMIT Internal Medicine; ATTEND Internal Medicine
DX: R07.89 Other chest pain (principal); I34.0 Nonrheumatic mitral (valve) insufficiency; I07.1 Rheumatic tricuspid insufficiency; I10 Essential (primary) hypertension; E78.5 Hyperlipidemia, unspecified; E66.01 Morbid (severe) obesity due to excess calories; K21.9 Gastro-esophageal reflux disease without esophagitis; Z68.35 Body mass index [BMI] 35.0-35.9, adult
CPT/HCPCS: 36415 ×2; 71045; 80053 ×2; 80061; 81001; 82550 ×2; 82553 ×2; 83880; 84443; 84484 ×2; 85025 ×2; 85610; 85730; 93005; 93306; 93458; 99284; C1766; G0378 ×2; J2001; J2250; J7030 ×2; Q9967